=== PATIENT | female | born 1995 ===

== ENCOUNTER 2018-01-07 15:05 | Emergency (ER) | payer MEDICAID | END 2018-01-07 17:19 | disposition home or self-care (01) | LOC: E/R 15:05 | DX: F41.1 Generalized anxiety disorder (principal) | CPT/HCPCS: 99283; Z7502 ==

== ENCOUNTER 2018-02-08 10:12 | Emergency (ER) | payer MEDICAID | END 2018-02-08 10:57 | disposition home or self-care (01) | LOC: FTE 10:12 | DX: J20.9 Acute bronchitis, unspecified (principal) | CPT/HCPCS: 99284; Z7502 ==